=== PATIENT | male | born 1995 | race Caucasian/White ===

== ENCOUNTER → 2018-07-06 | Outpatient (CLI) | payer OTHER ==
--- NOTE | 2018-07-06 17:31 | RADIOLOGY IMAGING REPORT ---
FACILITY: [facility] - [place] PATIENT NAME: Norm Berrios : 1995 MR: [id number] V: [id number] EXAM DATE: ORDERING PHYSICIAN: JUNG COBB TECHNOLOGIST: Location: [facility] - [place] Patient: Norm Berrios : 1995 Visit/Account:[id number] Date of Sevice: 07/06/2018 Examination: ULTRASOUND OF THE SCROTUM AND TESTES Comparison: None available. History: Testicle tenderness. Findings: Standard ultrasound of the testicles and scrotum with color flow and spectral analysis. Right testicle: 3.9 x 1.8 x 2.9 cm. Morphologically normal right testicle with normal waveforms on Do ppler interrogation. Right epididymis: Within normal limits. Left testicle: 4.1 x 1.9 x 3.2 cm. Morphologically normal left testicle with normal waveforms on Dopp ler interrogation. Left epididymis: Within normal limits. Hydrocele: None Varicocele: None Scrotum: Negative. IMPRESSION: Negative ultrasound of the scrotum and testicles. Report Dictated By: Michael Sierra MD at 07/06/2018 5:22 PM Report E-Signed By: Michael Sierra MD at 07/06/2018 5:26 PM WSN:[id number]
== END ==
LOC: US 16:07
PROVIDERS: ATTEND Nurse Practitioner Family
DX: N50.819 Testicular pain, unspecified (principal)
CPT/HCPCS: 76870

== ENCOUNTER 2018-10-24 17:19 | Inpatient (IN) | payer OTHER ==
[~2018-10-24] VITALS: Ht 175.3 cm; Wt 69.4 kg
--- NOTE | 2018-10-24 17:22 | ER Report ---
History and Physical Time Seen By MD: 17:17 HPI/ROS CHIEF COMPLAINT: Cough and fever HISTORY OF PRESENT ILLNESS: This is a 23-year-old male who presents to the emergency department from urgent care for cough and fever. Patient states that this past Thursday, he was at work, was using some cleaning materials, and although he had a mask he began to cough and "swallow something into the wrong pipe", since then he's had a semi-productive cough, subjectively had fevers, went to urgent care on Thursday, diagnosed with bronchitis, was given a prescription for Augmentin, taking the meds as prescribed, continue to have fevers, chills alternating with ibuprofen and Tylenol. He followed up at urgent care again today as his symptoms were worse, they noted a left lower lobe pneumonia on chest x-ray, laboratory studies showing a white count of 8.3 and a left shift, lactate up to 2.6. Subsequently they sent the patient to the emergency department. He does have a migraine type of headache, this is typical presentation for the patient, No meningismus. Patient arrives pale, mildly diaphoretic. Coarse nonproductive cough at this time. He denies chest pain, no nausea or vomiting. No diarrhea. No rashes. REVIEW OF SYSTEMS: Constitutional: As above. Eyes: No discharge. ENT: No sore throat. Cardiovascular: No chest pain, no palpitations. Respiratory: As above. Gastrointestinal: No abdominal pain, no vomiting. Genitourinary: No hematuria. Musculoskeletal: No back pain. Skin: No rashes. Neurological: As above. Allergies: Coded Allergies: No Known Drug Allergies (Unverified , 10/24/18) Home Meds Reported Medications Albuterol Sulfate (PROVENTIL HFA) 6.7 Gm Inh, 2 PUFF INH Q6H, INH 10/24/18 Benzonatate (BENZONATATE) 200 Mg Capsule, 200 MG PO TID PRN for COUGH, #15 CAP 10/24/18 Amoxicillin/Pot Clav 875-125 Mg Tab (AUGMENTIN 875-125 TABLET) 1 Each Tablet, 1 TAB PO Q12H, TAB 10/24/18 Past Medical/Surgical History The patient has a past medical and surgical history of ear infections, pneumonia, IBS. Reviewed Nurses Notes: Yes Constitutional Vital Sign - Last 24 Hours 10/24/18 10/24/18 10/24/18 8/11/19 17:24 17:30 18:00 18:30 Temp 99.5 Pulse 95 90 89 Resp 20 B/P (MAP) 110/81 119/78 (92) 121/85 (97) 112/67 (82) Pulse Ox 92 92 93 O2 Delivery Room Air 10/24/18 10/24/18 10/24/18 10/24/18 18:34 18:34 18:39 19:00 Pulse 89 99 106 Resp 16 16 B/P (MAP) 117/75 (89) Pulse Ox 94 92 O2 Delivery Room Air Physical Exam General Appearance: The patient is alert, has no immediate need for airway protection and no signs of toxicity. Eyes: Pupils equal and round no pallor or injection. ENT, Mouth: Mucous membranes are dry. Respiratory: Right middle to lower lobe and expiratory wheezes, left middle to lower lobe diminished otherwise unremarkable. Cardiovascular: Regular rate and rhythm. No murmurs, clicks or rubs. Gastrointestinal: Abdomen is soft and non tender, no masses, bowel sounds normal. Neurological: Alert and oriented 4. Moving all cavities. Following all commands. No focal neuro deficits. Skin: Patient is hot to touch, mildly diaphoretic, no rashes. Musculoskeletal: Neck is supple non tender. Extremities are nontender, nonswollen and have full range of motion. DIFFERENTIAL DIAGNOSIS: After history and physical exam differential diagnosis was considered for shortness of breath including but not limited to pulmonary infectious process, COPD, asthma, pulmonary embolus and congestive heart failure. Medical Decision Making Data Points Laboratory Chemistry Test 10/24/18 17:23 Lactate 1.4 mmol/L (0.7-2.1) EKG/Imaging Imaging PATIENT NAME: Norm Berrios : 1995 MR: [id number] V: [id number] EXAM DATE: ORDERING PHYSICIAN: YENNY CORONADO TECHNOLOGIST: Location: [facility] - [place] Patient: Norm Berrios : 1995 Visit/Account:[id number] Date of Sevice: 10/24/2018 Exam type: CHEST PA LAT History: Bronchitis, pneumonia, fever, chills Comparison: Earlier same day, 12/09/2016 as well. Findings: Left perihilar consolidation involving the superior segment left lower lobe is concerning for pneumonia. Right lung is well-expanded and clear. No visualized pneumothorax or pleural effusion. Heart size is normal. The osseous structures demonstrate a thoracolumbar scoliosis. IMPRESSION: 1. Left perihilar infiltrate involving the superior segment left lower lobe concerning for pneumonia. Report Dictated By: Cooper Jensen MD at 10/24/2018 6:14 PM Report E-Signed By: Cooper Jensen MD at 10/24/2018 6:17 PM WSN:[id number] ED Course/Re-evaluation Clinical Indication for ER IV: Hydration, IV Access ED Course The patient was admitted to room. History and physical were obtained. Differential diagnoses were considered. An IV was started. A repeat lactate was drawn which was normal. The patient's lab work from urgent care at 1538 showing a white count of 8.3, left shift, lactate of 2.6, the x-ray at urgent care also showing infiltrate in the left lower lobe suspicious for pneumonia, as I was not able to visualize the x-ray myself, we did repeat the x-ray, showing a retrocardiac left lower lobe pneumonia. Patient was given 1 L of fluids in the emergency department, he did remain tachycardic at a rate of 110 after the fluid bolus, the migraine headache that he was complaining of has improved after the fluid. He was given DuoNeb which did provide significant relief of his redness of breath. This patient has been febrile at home, worsening of his symptoms, I did speak with Dr. Jordyn Ferro, the hospitalist on-call, she is accepted the patient at the Hospital services for a pneumonia. Given 500 mg by mouth azithromycin in the emergency department. 10/24/2018 6:40:54 pm I did speak with Dr. Jordyn Ferro, the hospitalist sales person, she has accepted the patient in the Hospital services for pneumonia. Decision to Disposition Date: Oct 24, 2018 Decision to Disposition Time: 18:40 Depart Departure Latest Vital Signs Vital Signs Date Time Temp Pulse Resp B/P (MAP) Pulse Ox O2 Delivery O2 Flow Rate FiO2 10/24/18 19:00 106 117/75 (89) 92 10/24/18 18:39 16 10/24/18 18:34 Room Air 10/24/18 17:24 99.5 Impression: Primary Impression: Left lower lobe pneumonia Condition: Improved Disposition: Admitted from ER Problem Qualifiers Primary Impression: Left lower lobe pneumonia Pneumonia type: due to unspecified organism Qualified Codes: J18.1 - Lobar pneumonia, unspecified organism YENNY CORONADOP- Oct 24, 2018 17:22
[2018-10-24] MEDS ORDERED: NS(*) 0.9% 1000 ML BAG 1,000 ML IV ONE (17:29)
--- NOTE | 2018-10-24 18:23 | RADIOLOGY IMAGING REPORT ---
[place] [facility] [place] NAME: Norm Berrios : 1995 MR: [id number] V: [id number] EXAM DATE: ORDERING PHYSICIAN: YENNY CORONADO TECHNOLOGIST: Location: [facility] - [place] Patient: Norm Berrios : 1995 Visit/Account:[id number] Date of Sevice: 10/24/2018 Exam type: CHEST PA LAT History: Bronchitis, pneumonia, fever, chills Comparison: Earlier same day, 12/09/2016 as well. Findings: Left perihilar consolidation involving the superior segment left lower lobe is concerning for pneumon ia. Right lung is well-expanded and clear. No visualized pneumothorax or pleural effusion. Heart size is normal. The osseous structures demonstrate a thoracolumbar scoliosis. IMPRESSION: 1. Left perihilar infiltrate involving the superior segment left lower lobe concerning for pneumonia. Report Dictated By: Cooper Jensen MD at 10/24/2018 6:14 PM Report E-Signed By: Cooper Jensen MD at 10/24/2018 6:17 PM WSN:[id number]
[2018-10-24] MEDS ORDERED: ALBUTEROL/IPRATROPIUM 3 ML NEB NEB ONE (18:30)
[2018-10-24] MEDS ORDERED: AZITHROMYCIN 250 MG TAB PO ONE (19:10)
[2018-10-24] MEDS ORDERED: ALBUTEROL 2.5 MG/3 ML NEB NEB PRN (19:30)
[2018-10-24] MEDS ORDERED: BENZ200C15 PO (19:32)
[2018-10-24] MEDS ORDERED: AMOX-559 PO (19:32)
[2018-10-24] MEDS ORDERED: ALB6.7R INH (19:32)
[2018-10-24 19:35] VITALS: BP 125/73
--- NOTE | 2018-10-24 19:39 | History & Physical ---
History of Present Illness Chief Complaint The patient is a 23 year old previously healthy male who presents with 3-4 day history of cough, dyspnea, fever and chills. History of Present Illness The patient states he has previously been healthy except for some problems with his ears. He has been seeing an ENT specialist in [place] for this. 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 On Thursday he felt his lungs were irritated and worried that he might have inhaled some of the chemical she works with. He also had an episode of aspiration of saliva/mucous. The following day he started feeling hot and cold. He also felt weak. His left ear began hurting and he developed a headache. He began measuring his temperature and it was elevated. The highest temp he got at home was 102.5 degrees F. He was seen at [facility] Urgent care on October 22. He was treated for bronchitis with Augmentin, albuterol and benzonatate. His fe vers continued and he did not feel much better so he returned to [facility]Urgent Care earlier today. A CXR was done and showed a L sided infiltrate. A CBC showed a normal WBC but he did have a left shift. A chemistry panel was unremarkable. A lactate was mildly elevated at 2.4. He was then instructed to come to [facility] ER for further evaluation. A repeat lactate was normal. A repeat CXR did show a LLL infiltrate. The patient states that he has not been in contact with anyone else who has been sick. He complains of weakness, fever, chills and headache. He denies muscle aches. He denies neck stiffness. His appetite has been poor. He has had cough which has been productive of sputum. He denies GI symptoms. He has not had chest pain. He has not had sore throat or runny nose. He has had left ear discomfort. In the ER the patient continued to be febrile and tachycardic. He was recommended for admission for IV antibiotics and fluids. 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 He recently graduated from with a degree in [employer]. He is looking for a job in his field. He has a partner. Hx Smoking: No Hx Alcohol Use: Yes Alcohol Use: Occassional Hx Substance Use Disorder: No Review of Systems All Systems Reviewed/Normal: Yes, Except as Noted Constitutional: Fever, Chills Neurological: Weakness Respiratory: Shortness of Breath, Cough Gastrointestinal: Other (Decreased appetite.) Genitourinary: No Dysuria Exam Vital Signs Vital Signs Date Time Temp Pulse Resp B/P (MAP) Pulse Ox O2 Delivery O2 Flow Rate FiO2 10/24/18 19:35 99.4 96 125/73 (90) 93 Room Air 10/24/18 18:39 16 General Appearance: Alert, Awake, No Acute Distress, Other (Warm to the touch and slightly diaphoretic.) Neuro: No Gross deficits Eyes: PERRLA ENT: Other (L TM bulging but clear. Inferior edge with some erythema. ) Cardiovascular: Other (Tachy, regular.) Respiratory: Other (Crackles noted in lower left lung field. Scattered wheezing both lung mondragon.) GI: Abd Soft and Non-Tender Extremities: Warm, Perfused Integumentary: Skin Intact without Lesion / Mass Psych: Appropriate Mood & Affect Medical Decision Making EKG / Imaging Imaging FACILITY: [facility] - [place] PATIENT NAME: Norm Berrios : 1995 MR: [id number] V: [id number] EXAM DATE: ORDERING PHYSICIAN: YENNY CORONADO TECHNOLOGIST: Location: [facility] Patient: Norm Berrios : 1995 Visit/Account:[id number] Date of Sevice: 10/24/2018 Exam type: CHEST PA LAT History: Bronchitis, pneumonia, fever, chills Comparison: Earlier same day, 12/09/2016 as well. Findings: Left perihilar consolidation involving the superior segment left lower lobe is concerning for pneumonia. Right lung is well-expanded and clear. No visualized pneumothorax or pleural effusion. Heart size is normal. The osseous structures demonstrate a thoracolumbar scoliosis. IMPRESSION: 1. Left perihilar infiltrate involving the superior segment left lower lobe concerning for pneumonia. Report Dictated By: Cooper Jensen MD at 10/24/2018 6:14 PM Report E-Signed By: Cooper Jensen MD at 10/24/2018 6:17 PM WSN:[id number] Pre-Admit Course Medical Record Review: Yes Assessment and Plan Problems: (1) Left lower lobe pneumonia Status: Acute Assessment & Plan: The patient continues to be febrile despite taking Augmentin since Thursday. Will admit and place on Unasyn and azithromycin. Will hydrate with IV fluids. Will give antipyretics and antitussives. Repeat labs in am. Will start O2 if saturations fall below 90%. (2) Dehydration Status: Acute Assessment & Plan: Will hydrate with IV fluids. (3) Serous otitis media Status: Acute Assessment & Plan: The patient is currently tachycardic so will not order oral decongestant. Will try Afrin NS. Time Spent on Plan of Care: < 30 min Venous Thromboembolism Antithrombotics Is Pt On Any Antithrombotics?: Yes Exam Sepsis Risk: Possible Sepsis Risk Problem Qualifiers (1) Left lower lobe pneumonia: Pneumonia type: due to unspecified organism Qualified Codes: J18.1 - Lobar pneumonia, unspecified organism (2) Serous otitis media: Chronicity: acute Laterality: left Recurrence: recurrent Qualified Codes: H65.05 - Acute serous otitis media, recurrent, left ear RIC MCCLURE MD Oct 24, 2018 19:39
[2018-10-24] MEDS: ACETAMINOPHEN 325 MG TAB PO PRN (19:58)
[2018-10-24] MEDS: NS(*) 0.9% 1000 ML BAG 1,000 ML IV PRN (20:30)
[2018-10-24] MEDS: AMPICILLIN/SULBACT (*) 3 GM VL 3 GM in NS(*) 0.9% 100 ML MINI-BAG 100 ML IVPB SCH (21:20)
[2018-10-24 23:23] VITALS: BP 100/72
[2018-10-25] MEDS: AMPICILLIN/SULBACT (*) 3 GM VL 3 GM in NS(*) 0.9% 100 ML MINI-BAG 100 ML IVPB SCH ×4 (03:44→21:14)
[2018-10-25] MEDS: ACETAMINOPHEN 325 MG TAB PO PRN ×4 (03:44→21:13)
[2018-10-25] MEDS: NS(*) 0.9% 1000 ML BAG 1,000 ML IV PRN ×3 (04:26→20:08)
[2018-10-25 06:04] LABS: PLATELET COUNT, AUTOMATED 258 K/uL (150-450)
[2018-10-25 07:04] VITALS: BP 97/60
[2018-10-25] MEDS: ENOXAPARIN 40 MG/0.4ML SYR SC SCH (10:29)
[2018-10-25 11:19] VITALS: BP 121/80
--- NOTE | 2018-10-25 13:13 | Hospitalist Progress Note ---
Subjective Progress Notes Subjective No acute events overnight. He has a productive cough, and states he feels like he is wheezy. Patient Complains of: Neurological: No: Syncope, Confusion Cardiovascular: No: Chest Pain, Palpitations Respiratory: Cough, Congestion, Wheezing Gastrointestinal: No Nausea, No Vomiting Musculoskeletal: No: Pain Physical Exam Vital Signs Date Time Temp Pulse Resp B/P (MAP) Pulse Ox O2 Delivery O2 Flow Rate FiO2 10/25/18 11:19 98.4 89 24 121/80 (94) 94 Room Air Intake and Output 10/25/18 01:03 Intake Total 1100 ml Balance 1100 ml IV Total 1100 ml # Voids 2 General Appearance: Alert, Awake, No Acute Distress Cardiovascular: Regular Rate and Rhythm Respiratory: Other (Rhochi is the left lower lobe posteriorly. He has coarse lung sounds to the bilateral upper lobes. No wheezing noted. ) GI: Soft and Non-Tender Psych: Alert & Oriented X3, Appropriate Mood & Affect Result Diagram: 10/25/18 0534 10/25/18 0534 Assessment and Plan Problems: (1) Left lower lobe pneumonia Status: Acute Assessment & Plan: He has been a-febrile through the night, and this morning. He remains on Unasyn and Azithromycin. He reports he is coughing up yellow colored sputum. Will monitor overnight and repeat a CBC in the morning. Will slow his IV fluids. (2) Dehydration Status: Acute Assessment & Plan: He remains on IV fluids at a slower rate. (3) Serous otitis media Status: Acute Assessment & Plan: No complaints this morning. Exam Sepsis Risk: No Definite Risk Problem Qualifiers (1) Left lower lobe pneumonia: Pneumonia type: due to unspecified organism Qualified Codes: J18.1 - Lobar pneumonia, unspecified organism (2) Serous otitis media: Chronicity: acute Laterality: left Recurrence: recurrent Qualified Codes: H65.05 - Acute serous otitis media, recurrent, left ear DIONNA LEES Oct 25, 2018 13:13
[2018-10-25 19:02] VITALS: BP 119/80
[2018-10-25 23:05] VITALS: BP 120/80
[2018-10-26] MEDS: AMPICILLIN/SULBACT (*) 3 GM VL 3 GM in NS(*) 0.9% 100 ML MINI-BAG 100 ML IVPB SCH ×2 (03:09→08:46)
[2018-10-26] MEDS: NS(*) 0.9% 1000 ML BAG 1,000 ML IV PRN (03:10)
[2018-10-26 03:11] VITALS: BP 115/69
[2018-10-26 05:15] LABS: PLATELET COUNT, AUTOMATED 269 K/uL (150-450)
[2018-10-26 07:58] VITALS: BP 117/81
[2018-10-26] MEDS: ENOXAPARIN 40 MG/0.4ML SYR SC SCH (08:46)
--- NOTE | 2018-10-26 09:52 | Antimicrobial Stewardship ---
Antimicrobial Time Out Antimicrobial Stewardship MD Service: Hospitalist Indications: CAP Antimicrobial Used Unasyn Start Date: Oct 24, 2018 Culture Results: No (pending) RIC ODONNELL Oct 26, 2018 09:52
[2018-10-26] MEDS ORDERED: AMOX-559 PO (10:32)
--- NOTE | 2018-10-26 10:39 | Hospitalist Depart ---
Discharge Summary Reason for Hosp/Final Diag: (1) Left lower lobe pneumonia Status: Acute Hospital Course & Plan: He has been a-febrile through the night, and this morning. He has been treated with Unasyn and has responded well. He has been afebrile. He states his cough has improved and he is breathing easier. He has e xpressed interest in discharging home. He will be sent home on Augmentin for an additional 5 days to total 7 days worth of antibiotics since admission. (2) Dehydration Status: Acute Hospital Course & Plan: Improved with IV hydration. (3) Serous otitis media Status: Acute Hospital Course & Plan: No complaints this morning. Departure Weight (Pounds): 153 Result Diagram: 10/26/18 0456 10/25/18 0534 Condition: Improved Discharge: Home, Self Care Discharge Instructions Home Meds Active Scripts Amoxicillin/Pot Clav 875-125 Mg Tab (AUGMENTIN 875-125 TABLET) 1 Each Tablet, 1 TAB PO Q12H, #9 TAB Prov:DIONNA LEES 10/26/18 Reported Medications Albuterol Sulfate (PROVENTIL HFA) 6.7 Gm Inh, 2 PUFF INH Q6H, INH 10/24/18 Benzonatate (BENZONATATE) 200 Mg Capsule, 200 MG PO TID PRN for COUGH, #15 CAP 10/24/18 Amoxicillin/Pot Clav 875-125 Mg Tab (AUGMENTIN 875-125 TABLET) 1 Each Tablet, 1 TAB PO Q12H, TAB 10/24/18 Diet: Regular Activity: As Tolerated Special Instructions: Follow up with your PCP in 1-2 weeks to review your hospital admission. Take your antibiotics one tablet in the morning and one tablet at night. We have given you IV antibiotics in the hospital, you will start your first dose by mouth tonight. Finish your prescription for antibiotics. Return to a health care provider if symptoms do not continue to improve after your antibiotics are finished. Venous Thromboembolism Antithrombotics Is Pt On Any Antithrombotics?: Yes Problem Qualifiers (1) Left lower lobe pneumonia: Pneumonia type: due to unspecified organism Qualified Codes: J18.1 - Lobar pneumonia, unspecified organism (2) Serous otitis media: Chronicity: acute Laterality: left Recurrence: recurrent Qualified Codes: H65.05 - Acute serous otitis media, recurrent, left ear DIONNA LEES Oct 26, 2018 10:39
== END 2018-10-26 11:35 | disposition home or self-care (01) | DRG 195 ==
LOC: ER 17:39 → MED 19:06
PROVIDERS: ADMIT Internal Medicine; ATTEND Internal Medicine
DX: J18.1 Lobar pneumonia, unspecified organism (principal); E86.0 Dehydration; H65.02 Acute serous otitis media, left ear; J40 Bronchitis, not specified as acute or chronic
CPT/HCPCS: 36415; 71046; 82040; 82247; 82310; 82374; 82435; 82565; 82947; 83605; 84075; 84132; 84155; 84295; 84450; 84460; 84520; 85025; 87040; 94640; 96361; 96365; 99284; J0295; J1650; J7030; J7613

== ENCOUNTER → 2018-10-24 | Outpatient (REF) | payer OTHER ==
[~2018-10-24] MED LIST: ALB6.7R INH; AMOX-559 PO; BENZ200C15 PO
[2018-10-24 16:30] LABS: PLATELET COUNT, AUTOMATED 282 K/uL (150-450)
== END ==
PROVIDERS: ATTEND Family Medicine
DX: J32.9 Chronic sinusitis, unspecified (principal)
CPT/HCPCS: 82040; 82247; 82310; 82374; 82435; 82565; 82947; 83605; 84075; 84132; 84155; 84295; 84450; 84460; 84520; 85025

== ENCOUNTER → 2018-10-28 | Outpatient (CLI) | payer OTHER ==
--- NOTE | 2018-10-28 16:42 | RADIOLOGY IMAGING REPORT ---
FACILITY: PATIENT NAME: Norm Berrios : 1995 MR: [id number] V: [id number] EXAM DATE: ORDERING PHYSICIAN: BRAYDON SHERIFF TECHNOLOGIST: Location: [facility] Patient: Norm Berrios : 1995 Visit/Account:[id number] Date of Sevice: 10/28/2018 EXAMINATION: PA and Lateral Chest 10/28/2018 4:24 PM HISTORY: Unspecified bacterial pneumonia. Follow-up. COMPARISON: 10/24/2018 FINDINGS: Cardiomediastinal contours: Normal Lungs and pleura: Parahilar and superior segment left lower lobe infiltrates shown previously has vir tually resolved. No new focal infiltrate or consolidation elsewhere. Pleural spaces remain clear. Bones/soft tissues: Dextroscoliotic thoracolumbar curvature. IMPRESSION: Left perihilar and super segment lower lobe infiltrate shown previously has virtually res olved. Report Dictated By: Clive Shore MD at 10/28/2018 4:32 PM Report E-Signed By: Clive Shore MD at 10/28/2018 4:35 PM WSN:[email or web address]
== END ==
LOC: RAD 16:19
PROVIDERS: ATTEND Family Medicine
DX: J15.9 Unspecified bacterial pneumonia (principal)
CPT/HCPCS: 71046